=== PATIENT | male | born 2000 | race Caucasian/White ===

== ENCOUNTER 2022-07-24 02:32 | Emergency (ER) | payer SELFPAY ==
[~2022-07-24] VITALS: Ht 172.7 cm; Wt 70.0 kg
[2022-07-24 02:40] VITALS: BP 152/88
[2022-07-24] MEDS ORDERED: ONDANSETRON 4MG ODT PO ONE (03:15)
[2022-07-24 03:31] LABS: BASOPHILS % 0.5 % (0.0-2.0); EOSINOPHILS % 0.7 % (0.0-5.0); HEMOGLOBIN. 16.3 g/dL (14.0-18.0); LYMPHOCYTES % 8.4 % (20.0-50.0); MEAN CORPUSCULAR HEMOGLOBIN 28.7 pg (28.0-32.0); MEAN CORPUSCULAR VOLUME 82.6 fL (80.0-94.0); MEAN PLATELET VOLUME 7.3 fl (7.4-10.4); MONOCYTES % 7.4 % (2.0-8.0); PLATELET 216 x1000/uL (130-400); RED BLOOD CELL COUNT 5.69 mill/uL (4.7-6.1); RED CELL DISTRIBUTION WIDTH 13.7 % (11.6-14.6)
[2022-07-24 03:33] LABS: CHLORIDE 102 mEq/L (98-107)
[2022-07-24 03:41] LABS: ETHANOL BLOOD < 10 mg/dL
[2022-07-24] MEDS ORDERED: HALOPERIDOL LACTATE 5MG/ML VIAL IM ONE (04:15)
== END 2022-07-24 07:09 | disposition home or self-care (01) ==
LOC: ER 02:32
DX: N17.9 Acute kidney failure, unspecified (principal); E87.6 Hypokalemia; R11.10 Vomiting, unspecified; F12.90 Cannabis use, unspecified, uncomplicated; F41.9 Anxiety disorder, unspecified
CPT/HCPCS: 36415; 80053; 80320; 83690; 85025; 96372; 99283; J1630; Q0162; G0480